=== PATIENT | male | born 1955 | race Caucasian/White ===

== ENCOUNTER 2017-03-10 14:02 | Emergency (ER) | payer OTHER, SELFPAY | END 2017-03-10 14:57 | disposition home or self-care (01) | LOC: MADERS 14:02 | DX: S60.452A Superficial foreign body of right middle finger, initial encounter (principal); I10 Essential (primary) hypertension; W45.8XXA Other foreign body or object entering through skin, initial encounter | CPT/HCPCS: 99283 ==

== ENCOUNTER 2018-02-21 05:48 | Emergency (ER) | payer OTHER ==
[2018-02-21] MEDS ORDERED: Adacel (T-DAP) 0.5 ML VIAL ONE (06:27)
== END 2018-02-21 07:21 | disposition home or self-care (01) ==
LOC: MADERS 05:48
DX: S00.412A Abrasion of left ear, initial encounter (principal); I10 Essential (primary) hypertension; X58.XXXA Exposure to other specified factors, initial encounter
CPT/HCPCS: 90471; 90715; 99282

== ENCOUNTER 2018-09-19 10:21 | Emergency (ER) | payer OTHER ==
--- NOTE | 2018-09-19 11:57 | RAD ---
4 VIEWS LEFT KNEE: Date: 09/19/18 HISTORY: Stepped off easement and had shooting left knee pain. ' COMPARISON: 04/14/15. FINDINGS: Preservation of joint space height. No evidence of fracture or dislocation. There is stable suprapate llar joint capsular distention. Vascular calcifications are noted. IMPRESSION: Stable joint capsular distention, likely due to effusion. No evidence of fracture. If there is concer n, consider MRI. POS: [facility]
== END 2018-09-19 12:30 | disposition home or self-care (01) ==
LOC: MADERS 10:21
DX: S86.812A Strain of other muscle(s) and tendon(s) at lower leg level, left leg, initial encounter (principal); M71.22 Synovial cyst of popliteal space [Baker], left knee; I10 Essential (primary) hypertension; Z79.899 Other long term (current) drug therapy; X50.1XXA Overexertion from prolonged static or awkward postures, initial encounter

== ENCOUNTER 2019-04-18 09:23 | Emergency (ER) | payer OTHER ==
[2019-04-18] MEDS ORDERED: Ketorolac Tromethamine 30 MG/ML VIAL ONE (10:15)
[2019-04-18] MEDS ORDERED: Sodium Chloride 0.9% 1,000 ML ONE (10:15)
[2019-04-18 10:19] LABS: #Basophils 0.1 thou/uL (0.0-0.2); #Eosinphils 0.2 thou/uL (0.0-0.7); #Lymphocytes 0.9 thou/uL (1.20-3.40); #Monocytes 0.9 thou/uL (0.11-0.59); %Eosinophils 1.8 % (0.0-10.0); %Lymphocytes 8.1 % (21.0-51.0); %Neutrophils 81.1 % (42.0-75.0); Hemoglobin 15.5 g/dL (14.0-18.0); Mean Corpuscular HGB CONC 33.8 g/dL (32.0-36.0); Mean Corpuscular Hemoglobin 29.8 pg (27.0-31.0); Mean Corpuscular Volume 88.3 fL (78.0-98.0); Mean Platelet Volume 6.9 fL (7.4-10.4); Platelet Count 178 thou/uL (130-400); RBC Distribution Width 12.5 % (11.5-14.5); Red Blood Cell (RBC) Count 5.22 mill/uL (4.70-6.10); White Blood Cell (WBC) Count 11.1 thou/uL (4.8-10.8)
[2019-04-18 10:34] LABS: ALT (SGPT) 12 U/L (8-55); AST (SGOT) 17 U/L (5-34); Albumin 4.5 g/dL (3.4-4.8); Alkaline Phosphatase 62 U/L (40-150); Anion Gap 16 mmol/L (10-20); BUN (Urea Nitrogen) 30 mg/dL (8.4-25.7); Bilirubin, Total 0.5 mg/dL (0.2-1.2); Calc. Creatinine Clearance 0 mL/min (70-130); Calcium 10.2 mg/dL (7.8-10.44); Carbon Dioxide 26 mmol/L (23-31); Chloride 105 mmol/L (98-107); Estimated GFR-MDRD 65; Globulin 2.3 g/dL (2.4-3.5); Glucose 125 mg/dL (80-115); Potassium 3.3 mmol/L (3.5-5.1); Protein, Total 6.8 g/dL (5.8-8.1); Sodium 144 mmol/L (136-145)
[2019-04-18] MEDS ORDERED: Potassium Chloride 20 MEQ TAB ONE (10:45)
[2019-04-18] MEDS ORDERED: Ondansetron PF 4 MG/2 ML Vial ONE (10:45)
[2019-04-18 10:50] LABS: Bilirubin Negative (Negative); Blood, Urine Large (Negative); Clarity Cloudy (Clear); Glucose, Urine (Dipstick) Negative (Negative); Leukocyte Negative (Negative); Nitrite Negative (Negative); Protein, Urine (Dipstick) 30 mg/dL (Neg-Trace); Urobilinogen 0.2 mg/dL (Less than 2)
[2019-04-18 11:00] LABS: Bacteria/HPF Rare-Few HPF (None Seen); RBC/HPF Greater than 50 HPF (0-3); Squamous Epithelial 0-3 HPF (0-3); WBC/HPF 0-3 HPF (0-3)
[2019-04-18 11:01] LABS: Mucous/LPF 1+ LPF (<2+)
--- NOTE | 2019-04-18 11:02 | CT ---
CT STONE PROTOCOL: HISTORY: Left flank pain with vomiting. FINDINGS: Absence of oral and IV contrast reduces the sensitivity of the exam, particularly for evaluation of s olid organs involved. The lung bases are clear. No free air or free fluid is seen in the abdomen or pelvis. No calcified gallstones are noted. There is fecal material in the colon. A normal-appearing appendix is seen. T here are vascular calcifications without evidence of aneurysmal dilatation of the abdominal aorta. T here are degenerative changes in the spine. There is left-sided hydroureteral nephrosis due to a 5 mm calculus at L4-5 level. There are tiny melida culi in the kidneys on both sides. No right-sided hydroureteral nephrosis seen. No calculi are seen in the right ureter or the urinary bladder. IMPRESSION: 1. A 5 mm obstructing left ureteral calculi at L4-5 level. 2. Bilateral renal calculi. POS: [facility]
== END 2019-04-18 11:33 | disposition home or self-care (01) ==
LOC: MADERS 09:23
DX: N13.2 Hydronephrosis with renal and ureteral calculous obstruction (principal); E87.6 Hypokalemia; I10 Essential (primary) hypertension; Z79.899 Other long term (current) drug therapy
CPT/HCPCS: 74176; 80053; 81003; 81015; 84484; 85025; 93005; 96361; 96374; 96375; J1885; J2405; J7050

== ENCOUNTER 2019-11-18 14:47 | Emergency (ER) | payer OTHER ==
[2019-11-18] MEDS ORDERED: Tetracaine 0.5% OPHTH SOLN/PF 4 ML BOT ONE (15:09)
[2019-11-18] MEDS ORDERED: Fluorescein Opthalmic Strip ONE (15:09)
[2019-11-18] MEDS ORDERED: Neomycin-Polymyxin-Hc 7.5 ML BOT ONE (15:53)
== END 2019-11-18 16:02 | disposition home or self-care (01) ==
LOC: MADERS 14:47
DX: T15.01XA Foreign body in cornea, right eye, initial encounter (principal); I10 Essential (primary) hypertension; B15.9 Hepatitis A without hepatic coma; F43.10 Post-traumatic stress disorder, unspecified
CPT/HCPCS: 65222

== ENCOUNTER 2020-12-25 10:34 | Emergency (ER) | payer OTHER ==
[2020-12-25] MEDS ORDERED: Aspirin Chewable 81 MG TAB ONE (11:06)
[2020-12-25 11:14] LABS: #Basophils 0.1 thou/uL (0.0-0.2); #Eosinphils 0.4 thou/uL (0.0-0.7); #Lymphocytes 1.2 thou/uL (1.20-3.40); #Monocytes 0.4 thou/uL (0.11-0.59); #Neutrophils 4.8 thou/uL (1.40-6.50); %Basophils 0.8 % (0.0-1.0); %Eosinophils 6.1 % (0.0-10.0); %Lymphocytes 16.8 % (21.0-51.0); %Monocytes 6.2 % (0.0-10.0); %Neutrophils 70.1 % (42.0-75.0); Hemoglobin 14.4 g/dL (14.0-18.0); Mean Corpuscular HGB CONC 32.4 g/dL (32.0-36.0); Mean Corpuscular Hemoglobin 30.1 pg (27.0-31.0); Mean Corpuscular Volume 93.1 fL (78.0-98.0); Platelet Count 198 thou/uL (130-400); RBC Distribution Width 12.5 % (11.5-14.5); Red Blood Cell (RBC) Count 4.79 mill/uL (4.70-6.10); White Blood Cell (WBC) Count 6.9 thou/uL (4.8-10.8)
[2020-12-25 11:29] LABS: ALT (SGPT) 95 U/L (8-55); AST (SGOT) 40 U/L (5-34); Albumin 3.9 g/dL (3.4-4.8); Alkaline Phosphatase 65 U/L (40-110); Anion Gap 16 mmol/L (10-20); BUN (Urea Nitrogen) 24 mg/dL (8.4-25.7); Bilirubin, Total 0.5 mg/dL (0.2-1.2); Calc. Creatinine Clearance 0 mL/min (70-130); Calcium 8.6 mg/dL (7.8-10.44); Carbon Dioxide 24 mmol/L (23-31); Chloride 106 mmol/L (98-107); Globulin 1.8 g/dL (2.4-3.5); Glucose 113 mg/dL (80-115); Potassium 3.5 mmol/L (3.5-5.1); Protein, Total 5.7 g/dL (5.8-8.1); Sodium 142 mmol/L (136-145)
== END 2020-12-25 12:32 | disposition home or self-care (01) ==
LOC: MADERS 10:34
DX: S29.011A Strain of muscle and tendon of front wall of thorax, initial encounter (principal); Z86.718 Personal history of other venous thrombosis and embolism; I10 Essential (primary) hypertension
CPT/HCPCS: 36415; 71046; 80053; 84484; 85025; 93005

== ENCOUNTER 2022-02-24 06:50 | Emergency (ER) | payer OTHER | END 2022-02-24 07:46 | disposition home or self-care (01) | LOC: MADERS 06:50 | DX: M54.41 Lumbago with sciatica, right side (principal); I10 Essential (primary) hypertension; J43.9 Emphysema, unspecified; Z79.899 Other long term (current) drug therapy | CPT/HCPCS: 99283 ==

== ENCOUNTER 2023-03-02 19:30 | Emergency (ER) | payer OTHER ==
[2023-03-02] MEDS ORDERED: Boostrix 0.5 ML (Tdap) VIAL (>/=7 yrs of age) ONE (19:50)
== END 2023-03-02 20:10 | disposition home or self-care (01) ==
LOC: MADERS 19:30
DX: S01.511A Laceration without foreign body of lip, initial encounter (principal); I10 Essential (primary) hypertension; J43.9 Emphysema, unspecified; W22.8XXA Striking against or struck by other objects, initial encounter; Z23 Encounter for immunization; Z79.82 Long term (current) use of aspirin; Z79.899 Other long term (current) drug therapy
CPT/HCPCS: 90471; 90715

== ENCOUNTER 2023-10-18 11:46 | Emergency (ER) | payer OTHER | END 2023-10-18 12:27 | disposition left against medical advice (07) | LOC: MADERS 11:46 | DX: Z53.21 Procedure and treatment not carried out due to patient leaving prior to being seen by health care provider (principal) ==

== ENCOUNTER 2023-10-19 08:39 | Emergency (ER) | payer OTHER ==
[2023-10-19 09:16] LABS: #Basophils 0.1 thou/uL (0.0-0.2); #Eosinphils 0.3 thou/uL (0.0-0.7); #Lymphocytes 1.1 thou/uL (1.20-3.40); #Monocytes 0.5 thou/uL (0.11-0.59); #Neutrophils 4.5 thou/uL (1.40-6.50); %Basophils 0.8 % (0.0-1.0); %Eosinophils 4.3 % (0.0-10.0); %Lymphocytes 16.4 % (21.0-51.0); %Monocytes 7.5 % (0.0-10.0); %Neutrophils 70.9 % (42.0-75.0); Hematocrit 44.2 % (42.0-52.0); Hemoglobin 14.7 g/dL (14.0-18.0); Mean Corpuscular HGB CONC 33.2 g/dL (32.0-36.0); Mean Corpuscular Hemoglobin 30.7 pg (27.0-31.0); Mean Corpuscular Volume 92.4 fl (78.0-98.0); Mean Platelet Volume 8.5 fL (7.4-10.4); Platelet Count 189 10x3/uL (130-400); RBC Distribution Width 13.1 % (11.5-14.5); Red Blood Cell (RBC) Count 4.79 mill/uL (4.70-6.10); White Blood Cell (WBC) Count 6.4 10x3/uL (4.8-10.8)
[2023-10-19 09:29] LABS: ALT (SGPT) 29 U/L (8-55); AST (SGOT) 24 U/L (5-34); Albumin 4.1 g/dL (3.4-4.8); Alkaline Phosphatase 55 U/L (40-110); Anion Gap 14 mmol/L (10-20); BUN (Urea Nitrogen) 22 mg/dL (8.4-25.7); Bilirubin, Total 0.7 mg/dL (0.2-1.2); Calc. Creatinine Clearance 0 mL/min (70-130); Calcium 8.7 mg/dL (7.8-10.44); Carbon Dioxide 22 mmol/L (23-31); Chloride 109 mmol/L (98-107); Estimated GFR 97; Globulin 1.8 g/dL (2.4-3.5); Glucose 145 mg/dL (80-115); Potassium 3.2 mmol/L (3.5-5.1); Protein, Total 5.9 g/dL (5.8-8.1); Sodium 142 mmol/L (136-145)
== END 2023-10-19 09:51 | disposition home or self-care (01) ==
LOC: MADERS 08:39
DX: K92.1 Melena (principal); I10 Essential (primary) hypertension
CPT/HCPCS: 80053; 85025; 99283

== ENCOUNTER 2024-09-16 08:49 | Emergency (ER) | payer OTHER ==
[2024-09-16] MEDS ORDERED: Bacitracin 1 PK ONE (09:01)
[2024-09-16] MEDS ORDERED: Lidocaine 1% (PF) 30 ML VIAL ONE (09:01)
[2024-09-16] MEDS ORDERED: Boostrix 0.5 ML (Tdap) VIAL (>/=7 yrs of age) ONE (09:02)
[2024-09-16] MEDS ORDERED: Cephalexin 500 MG CAP ONE (10:43)
== END 2024-09-16 10:52 | disposition home or self-care (01) ==
LOC: MADERS 08:49
DX: S91.111A Laceration without foreign body of right great toe without damage to nail, initial encounter (principal); I10 Essential (primary) hypertension; Z23 Encounter for immunization; W01.0XXA Fall on same level from slipping, tripping and stumbling without subsequent striking against object, initial encounter
CPT/HCPCS: 12002; 90471; 90715

== ENCOUNTER 2024-09-20 15:58 | Emergency (ER) | payer OTHER ==
[2024-09-20] MEDS ORDERED: Dexamethasone 4 MG TAB ONE (16:28)
[2024-09-20] MEDS ORDERED: Acetaminophen 500 MG TAB ONE (16:28)
[2024-09-20] MEDS ORDERED: Ibuprofen 600 MG TAB ONE (16:28)
== END 2024-09-20 17:36 | disposition home or self-care (01) ==
LOC: MADERS 15:58
DX: J11.1 Influenza due to unidentified influenza virus with other respiratory manifestations (principal); I10 Essential (primary) hypertension
CPT/HCPCS: 71046; 87428; J8540